=== PATIENT | male | born 1965 | race Caucasian/White ===

== ENCOUNTER 2023-02-08 00:16 | Emergency (ER) | payer OTHER ==
[~2023-02-08] VITALS: Ht 180.3 cm; Wt 88.5 kg
[2023-02-08 00:26] VITALS: BP 168/106
== END 2023-02-08 01:05 | disposition home or self-care (01) ==
LOC: ER 00:16
DX: H53.9 Unspecified visual disturbance (principal); Z87.828 Personal history of other (healed) physical injury and trauma; R03.0 Elevated blood-pressure reading, without diagnosis of hypertension
CPT/HCPCS: 99284-25